=== PATIENT | female | born 1980 | race Caucasian/White ===

== ENCOUNTER 2024-05-22 09:10 | Emergency (ER) | payer BC ==
[~2024-05-22] VITALS: Ht 157.5 cm; Wt 62.1 kg
[2024-05-22 09:42] VITALS: TEMP 98.2
[2024-05-22] MEDS ORDERED: ACETAMINOPHEN ES 500 MG TABLET ONE (10:17)
[2024-05-22 10:19] LABS: BASOPHILS % (AUTO) 0.6 % (0.0-2.0); EOSINOPHILS % (AUTO) 0.4 % (0.0-6.0); HEMATOCRIT 43 % (33-45); HEMOGLOBIN 14.3 g/dL (11.5-14.8); LYMPHOCYTES # (AUTO) 1.6 K/uL (0.8-4.8); MEAN CORPUSCULAR HEMOGLOBIN 30 PG (26.0-33.0); MEAN CORPUSCULAR HGB CONC 33 g/dl (31.0-36.0); MEAN CORPUSCULAR VOLUME 89 fL (82-100); MONOCYTES # (AUTO) 0.4 K/uL (0.1-1.30); MONOCYTES % (AUTO) 5.9 % (2.0-12.0); NEUTROPHILS # (AUTO) 4.8 K/uL (1.8-8.9); NEUTROPHILS % (AUTO) 70.1 % (43.0-81.0); PLATELET COUNT (AUTO) 305 K/uL (150-450); RED BLOOD CELL COUNT(AUTO) 4.83 MIL/uL (4.0-5.2); RED CELL DISTRIBUTION WIDTH 12.8 % (11.5-15.0); WHITE BLOOD COUNT (AUTO) 6.8 K/uL (4.3-11.0)
[2024-05-22] MEDS: IV NS 0.9% 1,000 ML BAG IV ONE (10:22)
[2024-05-22] MEDS: ACETAMINOPHEN ES 500 MG TABLET PO ONE (10:23)
[2024-05-22 10:30] LABS: CALCIUM, SERUM 9.1 mg/dL (8.5-10.1); CREATININE 0.9 mg/dL (0.6-1.3); POTASSIUM 4.3 mmol/L (3.5-5.1)
[2024-05-22 10:37] LABS: ALBUMIN 4.6 g/dL (3.4-5.0); BILIRUBIN,DIRECT 0.2 mg/dL (0.0-0.2); BILIRUBIN,TOTAL 1.1 mg/dL (0.2-1.0)
[2024-05-22 10:57] LABS: APPEARANCE,URINE CLEAR (CLEAR); BILIRUBIN,URINE NEGATIVE (NEGATIVE); BLOOD, URINE TRACE-INTA Ery/uL (NEGATIVE); COLOR,URINE YELLOW (YELLOW); KETONES,URINE 3+ mg/dL (NEGATIVE); LEUKOCYTE ESTERASE ,URINE NEGATIVE (NEGATIVE); NITRITE, URINE NEGATIVE (NEGATIVE); PROTEIN,URINE NEGATIVE (NEGATIVE); UGLUCOSE NEGATIVE (NEGATIVE); UROBILINOGEN,URINE 0.2 EU/dL (0.2)
[2024-05-22 11:29] LABS: ADD URINE CULTURE NO; BACTERIA,URINE Rare /HPF (None Seen); RBC,URINE 0-2 /HPF (0-2); WBC,URINE 0-2 /HPF (0-3)
[2024-05-22 11:30] LABS: PREGNANCY TEST URINE QUAL NEGATIVE (NEGATIVE)
[2024-05-22] MEDS ORDERED: KETOROLAC TROMETHAMINE 15 MG/ML VIAL ONE (12:16)
[2024-05-22] MEDS ORDERED: LIDOCAINE 5% (PATCH) 1 EA PATCH TP ONE (12:17)
[2024-05-22] MEDS ORDERED: CYCLOBENZAPRINE 10 MG TABLET ONE (12:17)
[2024-05-22] MEDS: LIDOCAINE 5% (PATCH) 1 EA PATCH TP STA (12:22)
[2024-05-22] MEDS: CYCLOBENZAPRINE 10 MG TABLET PO ONE (12:23)
[2024-05-22] MEDS: KETOROLAC TROMETHAMINE 15 MG/ML VIAL IV ONE (12:23)
[2024-05-22] MEDS ORDERED: IBUP-1955 PO (12:40)
[2024-05-22] MEDS ORDERED: LIDO30AD10 TP (12:40)
[2024-05-22] MEDS ORDERED: CYCL5TAB PO (12:40)
[2024-05-22 12:53] VITALS: BP 120/75; O2SAT 100
== END 2024-05-22 12:50 | disposition home or self-care (01) ==
LOC: ER 09:21
DX: M54.50 Low back pain, unspecified (principal); R10.32 Left lower quadrant pain
CPT/HCPCS: 99284; 74176; 96360; 76856; 85025; 80048; 83690; 80076; 84703; 81001; 36415; J7030; J1885